=== PATIENT | male | born 1985 | race Caucasian/White ===

== ENCOUNTER 2017-04-11 12:58 | Emergency (ER) | payer OTHER ==
--- NOTE | 2017-04-11 20:33 | ED ORDER SUMMARY ---
..... Patient: MARCE LOPEZ OrderSheet [facility] VisitID: [id number] [address] [place] [address] 31y, M Registration Date/Time: 04/11/2017 ORDER SHEET Weight: 77.1 kg (estimated) Allergies: No Known Drug Allergy GENERAL ORDERS: UA-Culture if indicated Urgent (13:04/11/2017 PHutchinson DO) (Ack 13:24 OHernandez) (14:47 Linda R.N.) Urine Drug Screen Urgent (13:04/11/2017 PHutchinson DO) (Ack 13:24 OHernandez) (14:47 Linda R.N.) Acetaminophen Level Urgent (13:04/11/2017 PHohchinson DO) (Ack 13:24 OHernandez) (13:32 Linda R.N.) Ethyl Alcohol Urgent (13:04/11/2017 PHutchinson DO) (Ack 13:24 OHernandez) (13:32 Linda R.N.) Salicylate Level Urgent (13:04/11/2017 PHutchinson DO) (Ack 13:24 OHernandez) (13:32 Linda R.N.) Cardiac Panel Stat (13:04/11/2017 PHohchinson DO) (Ack 13:25 OHernandez) (13:32 Linda R.N.) [place] Level Urgent (13:04/11/2017 PHutchinson DO) (Ack 13:25 OHernandez) (13:32 Linda R.N.) TSH Urgent (13:04/11/2017 PHutchinson DO) (Ack 13:25 OHernandez) (13:32 Linda R.N.) Lipase Urgent (13:04/11/2017 PHutchinson DO) (Ack 13:25 OHernandez) (13:32 Linda R.N.) Amylase Urgent (13:04/11/2017 PHutchinson DO) (Ack 13:25 OHernandez) (13:32 Linda R.N.) BNP Urgent (13:04/11/2017 PHutchinson DO) (Ack 13:25 OHernandez) (13:32 Linda R.N.) PT with INR Urgent (13:16 04/11/2017 [facility]) (Ack 13:25 Vivian) (13:32 Linda R.N.) EKG - ER Stat (13:16 04/11/2017 [facility] ) (13:37 Linda R.N.) Call (Place call to): ([place] PAT) (15:29 04/11/2017 [facility] ) (Ack 15:42 TBergley) (16:12 TBergley) CPK Urgent (21:56 04/11/2017 [facility] ) (Ack 21:58 CHagerty ER Diffusion Furnace Operator) (7:20 CHagerty ER Diffusion Furnace Operator) MEDICATION ORDERS: ZyPREXA Zydis ODT PO 10 mg (NOW) (13:44 04/11/2017 [facility]) (Ack 13:45 Linda R.N.) (Cancelled: Patient [id number] Linda R.N.) IV FLUIDS: IV NS : initial bolus 1000 mL (1000 mL/hr), then 500 mL/hr for X2 (NOW) (13:16 04/11/2017 [facility]) (13:30 Linda R.N.) ORDER SHEET NOTES: [Electronically signed by En Lua R.N. (13:38 04/12/2017)] [Electronically locked/signed by En Lua R.N. (13:38 04/12/2017)]
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
--- NOTE | 2017-04-11 20:33 | ED ORDER SUMMARY ---
..... Patient: MARCE LOPEZ OrderSheet [facility] VisitID: [id number] [address] [place] [address] 31y, M Registration Date/Time: 04/11/2017 ORDER SHEET Weight: 77.1 kg (estimated) Allergies: No Known Drug Allergy GENERAL ORDERS: UA-Culture if indicated Urgent (13:04/11/2017 PHutchinson DO) (Ack 13:24 OHernandez) (14:47 Linda R.N.) Urine Drug Screen Urgent (13:04/11/2017 PHutchinson DO) (Ack 13:24 OHernandez) (14:47 Linda R.N.) Acetaminophen Level Urgent (13:04/11/2017 PHidchinson DO) (Ack 13:24 OHernandez) (13:32 Linda R.N.) Ethyl Alcohol Urgent (13:04/11/2017 PHutchinson DO) (Ack 13:24 OHernandez) (13:32 Linda R.N.) Salicylate Level Urgent (13:04/11/2017 PHutchinson DO) (Ack 13:24 OHernandez) (13:32 Linda R.N.) Cardiac Panel Stat (13:04/11/2017 PHidchinson DO) (Ack 13:25 OHernandez) (13:32 Linda R.N.) [place] Level Urgent (13:04/11/2017 PHutchinson DO) (Ack 13:25 OHernandez) (13:32 Linda R.N.) TSH Urgent (13:04/11/2017 PHutchinson DO) (Ack 13:25 OHernandez) (13:32 Linda R.N.) Lipase Urgent (13:04/11/2017 PHutchinson DO) (Ack 13:25 OHernandez) (13:32 Linda R.N.) Amylase Urgent (13:04/11/2017 PHutchinson DO) (Ack 13:25 OHernandez) (13:32 Linda R.N.) BNP Urgent (13:04/11/2017 PHutchinson DO) (Ack 13:25 OHernandez) (13:32 Linda R.N.) PT with INR Urgent (13:16 04/11/2017 [facility]) (Ack 13:25 Vivian) (13:32 Linda R.N.) EKG - ER Stat (13:16 04/11/2017 [facility] ) (13:37 Linda R.N.) Call (Place call to): ([place] PAT) (15:29 04/11/2017 [facility] ) (Ack 15:42 TBergley) (16:12 TBergley) CPK Urgent (21:56 04/11/2017 [facility] ) (Ack 21:58 CHagerty ER Jewel Supervisor) (7:20 CHagerty ER Jewel Supervisor) MEDICATION ORDERS: ZyPREXA Zydis ODT PO 10 mg (NOW) (13:44 04/11/2017 [facility]) (Ack 13:45 Linda R.N.) (Cancelled: Patient [id number] Linda R.N.) IV FLUIDS: IV NS : initial bolus 1000 mL (1000 mL/hr), then 500 mL/hr for X2 (NOW) (13:16 04/11/2017 [facility]) (13:30 Linda R.N.) ORDER SHEET NOTES: [Electronically signed by En Lua R.N. (13:38 04/12/2017)] [Electronically locked/signed by En Lua R.N. (13:38 04/12/2017)]
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
--- NOTE | 2017-04-14 08:45 | ED MED RECONCILIATION SUMMARY ---
Patient: MARCE LOPEZ Medication Reconciliation Report [facility] VisitID: [id number] [address] [place] [address] 31y, M Registration Date/Time: 04/11/2017 Weight: 77.1 kg Height/Length: 72 in. BMI: 23.1 ALLERGIES: No Known Drug Allergy The patient's Home Medications are listed below: THE FOLLOWING MEDICATIONS NEED TO BE RECONCILED: Abilify Oral, stopped taking this about 1 week ago Rexulti, not taking for about 1 week The source(s) of the original Home Medication information: patient The following Medications were given to the patient in the Emergency Department: IV NS IV Fluids bolus 0, then 1000 mL/hr, administered: 04/11/2017 1:29:00 PM The following Medications were prescribed to the patient: None.
--- NOTE | 2017-04-14 08:45 | ED DISCHARGE INSTRUCTIONS ---
Patient: MARCE LOPEZ General Instructions [facility] VisitID: [id number] [place] [address] 31y, M Registration Date/Time: 04/11/2017 Chronic disorganized schizophrenia with exacerbation. Mild dehydration Abnormal tests: (mild CPK elevation secondary to walking / exercise). Abnormal liver function test: AST/SGOT. Mild leukocytosis. No lymphocytosis. INSTRUCTIONS Follow-up: Screening today revealed the patient's blood pressure to be in the hypertensive range. The patient was transferred and blood pressure will be managed by the receiving provider. ADDITIONAL INFORMATION Dehydration (Adult) Dehydration occurs when your body loses too much fluid. This may be the result of vomiting a lot or from diarrhea,sweating a lot, or a high fever. It may also happen if you dont drink enough fluid when youre sick. Misuse of diuretics (water pills) can also be a cause. Symptoms include thirst and feeling dizzy, weak, fatigued, or very drowsy. The diet described below is usually enough to treat most cases. Sometimes you may needmedicine. Home Care Follow these guidelines for home care: Drink at least 12 8-ounce glasses of fluid every day to overcome the dehydration. Fluid may include water; orange juice; lemonade; apple, grape, and cranberry juice; clear fruit drinks; electrolyte replacement and sports drinks; and teas and coffee without caffeine. If you have been diagnosed with a kidney disease, ask your doctor how much and what types of fluids you should drink to prevent dehydration. If you have kidney disease, drinking too much fluid can cause it build up in the your body and be dangerous to your health. If you have fever, muscle aching, or headache from a viral syndrome, you may useacetaminophen or ibuprofen, unless another medicine was prescribed for this.If you have chronic liver or kidney disease or ever had a stomach ulcer or GI bleeding, talk with your doctor before using these medicines. Don't take aspirin if you are younger than 18 and are ill with a fever.Aspirin raises the chance forsevere liver injury. Follow-up care Follow up with your health care provider if you don't get better in the next 24 to 48 hours. When to seek medical care Get prompt medical attention if any of theseoccur: Continued vomiting (cant keep liquids down) Frequent diarrhea (more than 5 times a day); blood (red or black color) or mucus in diarrhea Blood in vomit or stool Swollen abdomen or increasing abdominal pain Weakness, dizziness, or fainting Unusually drowsy or confused Reduced urine output or extreme thirst Fever of 100.4 F (38 C) oral or higher that does not get better with fever medication You have been given the following additional information: Dehydration (Adult) (Electronically signed by Rohith Padron Dr. 04/14/2017 8:45)
--- NOTE | 2017-04-14 08:45 | ED MAR SUMMARY ---
..... Medication Administration Record [facility] [address] [place] [address] Patient: MARCE LOPEZ Visit ID: [id number] 31y, M Weight: 77.1 kg Height/Length: 72 in BMI: 23.1 ALLERGIES: No Known Drug Allergy Start 13:29 04/11/2017 Gunjan Reyna R.N., Stop 17:30 04/11/2017 Gunjan Reyna R.N. Medication Administered: IV NS (SALINE), Dose: IV Fluids over 1 hour(s), Rate: 1000 mL/hr, Dispensed: 1000 mL bag, Site: #1 left forearm. Medication Ordered: IV NS : initial bolus 1000 mL (1000 mL/hr), then 500 mL/hr for X2 (NOW).
--- NOTE | 2017-04-14 08:45 | ED MED RECONCILIATION SUMMARY ---
Patient: MARCE LOPEZ Medication Reconciliation Report [facility] VisitID: [id number] [address] [place] [address] 31y, M Registration Date/Time: 04/11/2017 Weight: 77.1 kg Height/Length: 72 in. BMI: 23.1 ALLERGIES: No Known Drug Allergy The patient's Home Medications are listed below: THE FOLLOWING MEDICATIONS NEED TO BE RECONCILED: Abilify Oral, stopped taking this about 1 week ago Rexulti, not taking for about 1 week The source(s) of the original Home Medication information: patient The following Medications were given to the patient in the Emergency Department: IV NS IV Fluids bolus 0, then 1000 mL/hr, administered: 04/11/2017 1:29:00 PM The following Medications were prescribed to the patient: None.
--- NOTE | 2017-04-14 08:45 | ED MAR SUMMARY ---
..... Medication Administration Record [facility] [address] [place] [address] Patient: MARCE LOPEZ Visit ID: [id number] 31y, M Weight: 77.1 kg Height/Length: 72 in BMI: 23.1 ALLERGIES: No Known Drug Allergy Start 13:29 04/11/2017 Gunjan Reyna R.N., Stop 17:30 04/11/2017 Gunjan Reyna R.N. Medication Administered: IV NS (SALINE), Dose: IV Fluids over 1 hour(s), Rate: 1000 mL/hr, Dispensed: 1000 mL bag, Site: #1 left forearm. Medication Ordered: IV NS : initial bolus 1000 mL (1000 mL/hr), then 500 mL/hr for X2 (NOW).
== END 2017-04-12 12:45 ==
LOC: ED SRH 12:58
DX: F20.1 Disorganized schizophrenia (principal); E86.0 Dehydration; R94.5 Abnormal results of liver function studies; D72.829 Elevated white blood cell count, unspecified
CPT/HCPCS: 90004; 90100; 90616; 90617; 91320; 91589; 92010; 92235; 92530; 92610; 92720; 92760; 92761; 92762; 92763; 92764; 92765; 92766; 92767; 92780; 93140; 94060; 95059; 97000